=== PATIENT | male | born 1985 | race Caucasian/White ===

== ENCOUNTER 2016-02-29 18:28 | Emergency (ER) | payer MEDICAID ==
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
[2016-02-29] MEDS ORDERED: HYDROmorphONE/DILAUDID 1 MG/ML SYR IVP ONE (20:20)
[2016-02-29 20:57] VITALS: RESP 14
[2016-02-29] MEDS ORDERED: DIAZEPAM 10 MG/2 ML SYR IVP ONE (21:36)
[2016-02-29] MEDS ORDERED: IBUPROFEN 600 MG TAB PO ONE (22:47)
[2016-02-29] MEDS ORDERED: OXYCODONE/APAP 5/325 TAB ONE (22:47)
[2016-02-29] MEDS ORDERED: OXYCODONE/APAP 5/325 TAB PO ONE (22:53)
[2016-02-29] MEDS ORDERED: OXYCODONE/APAP 5/325MG PREPACK#4 BTL TAKEHOME ONE (23:59)
[2016-02-29] MEDS ORDERED: DIAZEPAM 5 MG PREPACK#4 BTL TAKEHOME ONE (23:59)
[2016-03-01 00:17] VITALS: BP 117/78; PULSE 76; TEMP 98.2; O2SAT 95
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
== END 2016-03-01 00:21 | disposition home or self-care (01) ==
DX: S22.080A Wedge compression fracture of T11-T12 vertebra, initial encounter for closed fracture (principal); S62.624A Displaced fracture of middle phalanx of right ring finger, initial encounter for closed fracture; V18.2XXA Unspecified pedal cyclist injured in noncollision transport accident in nontraffic accident, initial encounter; Y92.410 Unspecified street and highway as the place of occurrence of the external cause; Y99.8 Other external cause status; Y93.89 Activity, other specified
CPT/HCPCS: 96374; J1170

== ENCOUNTER → 2017-08-01 | Outpatient (CLI) | payer MEDICAID | LOC: FIMAGING 11:25 | PROVIDERS: ATTEND Physician Assistant Medical | DX: M79.671 Pain in right foot (principal) ==